=== PATIENT | female | born 1945 | race Caucasian/White ===

== ENCOUNTER 2023-12-12 19:04 | Emergency (ER) | payer MEDICARE, SELFPAY ==
--- NOTE | ~2023-12-12 | CT_ITS ---
EXAMINATION: CT HEAD WITHOUT CONTRAST, CT CERVICAL SPINE WITHOUT CONTRAST CLINICAL INFORMATION: Fall. Head strike COMPARISON: None. TECHNIQUE: Multidetector CT examination of the head is performed without contrast. Multidetector CT of the cervical spine without contrast. Multiplanar postprocessing This CT examination was performed using dose optimization techniques as appropriate, variously including the following: *Automated exposure control *Adjustment of mA and/or kV according to patient size (this includes techniques or standardized protocols for targeted exams where dose is matched to indication/reason for exam; i.e. extremities or head) *Use of iterative reconstruction technique DLP: 905 mGy-cm FINDINGS: Head CT: There is no evidence of a recent intracranial hemorrhage or extra-axial collection. The midline structures are nondisplaced. The ventricles, cisterns, and sulci are within normal limits. There is no evidence of an intra-axial mass. There are no suspicious focal areas of abnormal brain attenuation. The dozier-white interface is within normal limits. There is no evidence of acute territorial infarct. The paranasal sinuses and mastoids are within normal limits. No fracture demonstrated. Posterior high right convexity scalp hematoma. Cervical CT: Abnormal alignment. There is reversal of the expected lordosis centered at the C4/C5 level. There is minimal anterolisthesis of C3 relative to C4. There is partial ankylosis at C3/C4. There is marked narrowing of the disks from C3 through C7. There is proliferative osteophyte with sclerosis. This encroaches upon the spinal canal and the foramina. There is narrowing of the facets and there is foraminal narrowing. I suspect ankylosis of the facets at C3/C4. No definite acute fracture. No focal lesion. Mineralization of the ligaments around the odontoid. No suspicious abnormality in the visualized apex of the chest CT/CT cervical spine wo IV con IMPRESSION: 1. There is no evidence of a recent intracranial hemorrhage. 2. No acute infarct. 3. No acute cervical fracture. Reversal of expected lordosis with severe degenerative disc and degenerative joint disease. No old studies to confirm stability.
[2023-12-12 19:25] VITALS: BP 159/97; PULSE 103; RESP 17; O2SAT 99; BMI 23.4
[2023-12-12 20:07] VITALS: BP 129/90; PULSE 90; RESP 16; TEMP 37.2; O2SAT 97
--- NOTE | 2023-12-12 20:14 | PC.NURSE ---
Pt ambulates to the bathroom with a steady gait and no assist.
--- NOTE | 2023-12-12 21:05 | ED_ITS ---
HPI - General Adult General Chief complaint: Fall Stated complaint: fell and hit back of head Time Seen by Provider: 12/12/23 20:50 History of Present Illness ED Provider: Lyudmila Trejo PA-C HPI narrative: 78 yold female with pmh of GERD presents to the ED for head trauma. Patient states she was walking to garbage and she tripped on the stairs and fell back and hit her head. Patient denies any dizziness, nausea, vomiting, headache, chest pain, or abdominal pain before falling. Patient states it was a mechanical fall. Patient denies any loss of consciousness. Patient states no complaints since incident. Related Data Allergies Allergy/AdvReac Type Severity Reaction Status Date / Time No Known Allergies Allergy Verified 12/12/23 19:28 Review of Systems 2 Review of Systems: fall Yes all other systems are reviewed and are negative [facility] Social History Social History Smoked in Last 30 Days: No Use of substances other than those prescribed or required for medical reasons: No Advance Directives: No Advance Directives Information Provided: No Do you have a plan to hurt others: No Plan Physical Exam ED Vital Signs: Vital Signs - 24 hr 12/12/23 19:25 12/12/23 20:07 12/12/23 20:07 Temperature 99.0 F 99.0 F Pulse Rate 103 H 90 90 Respiratory Rate 17 16 16 Blood Pressure 159/97 H 129/90 H 129/90 H Pulse Oximetry 99 97 97 Oxygen Delivery Method Room Air Room Air 12/12/23 22:47 12/12/23 23:20 Temperature 98.4 F 98.4 F Pulse Rate 81 81 Respiratory Rate 16 16 Blood Pressure 127/85 127/85 Pulse Oximetry 97 97 Oxygen Delivery Method Room Air BMI result Body Mass Index 23.4 Const General: cooperative, healthy appearing, comfortable, no acute distress, well developed, alert, awake and Physically active Orientation/consciousness: patient oriented x3 HENMT Head: Yes normal to inspection, Yes No palpable skull fracture present and Yes normocephalic Head images: 2 1. positive for hematoma with mild tenderness. Negative for active bleeding. Negative for lacerations. Negative for crepitus Ears: hearing grossly normal bilaterally, external ears normal, TM's normal bilaterally, TM normal on the right, TM normal on the left, EAC's normal, mastoids normal and no periauricular adenopathy Throat: Yes posterior oropharynx normal, Yes tonsils normal and Yes uvula midline Eyes General: appearance normal, both eyes and all related structures Neck Neck: Yes normal visual inspection, Yes full ROM, Yes no lymphadenopathy, Yes no meningeal signs, Yes trachea midline, Yes supple, No anterior neck swelling and No tender Chest Chest palpation & inspection: normal inspection of the chest and normal palpation of entire chest wall Resp Effort & Inspection: normal respiratory effort and able to speak in complete sentences Auscultation: clear to auscultation bilaterally Cardio Jugular venous distension: no JVD Heart sounds: S1 normal heart sound present and S2 normal heart sound present GI Inspection: Yes normal to inspection Palpation (GI): Soft to palpation, not firm, nontender, no guarding and not rigid General: No CVA tenderness and Yes no CVA tenderness Back/Spine/Pelvis Back: no CVA tenderness, No CVA tenderness and No back tenderness Skin General skin exam: no rashes or lesions noted, elasticity normal and turgor normal Neuro General: patient oriented x3, gait normal, tone normal, moves all extremities, Normal light touch and pain sensation, no meningeal signs, no focal motor deficits, CN's II-XI intact bilaterally and normal sensation to monofilament Cranial nerves: Yes CN's II-XII intact bilaterally Extrem General: Yes normal to inspection, Yes full ROM and Yes capillary refill normal Psych Appearance: grossly normal, well kempt and not disheveled Medical Decision Making Medical Decision Making MDM Narrative: 78-year-old female the tripping on stairs in the garage close to the garbage. Patient denies any loss of consciousness. Patient denies any chest pain, shortness of breath, abdominal pain, dizziness, headache before falling. Patient is presently asymptomatic. Due to age head CT cervical spine ordered. 11:00pm; patient's images came back normal. No need for any further medical evaluation. Patient had mechanical fall with no need for labs or EKG. Patient is alert oriented x3. Patient denies any complaints. Patient explained worrisome sign informed to return to the ED immediately Differential Diagnosis Differential Diagnoses: The differential diagnosis associated with the presentation includes (Fracture, cervical spine fracture, brain bleed) Admission/Observation Consideration of admission/observation: Escalation of care including admission/observation considered Independent Interpretation I performed an independent interpretation of an: CT Scan Radiology Impression Discussion of test interpretation with radiology: I have reviewed the radiologist's reading. Independent Historian Clinical information obtained from an independent historian. History obtained from or confirmed by: Other ([facility]) External Record Review External record reviewed: Other (prior vistis) Discharge Plan Discharge Clinical Impression: Head injury, Fall Patient Disposition: Home, Self-Care Instructions: Head Injury (ED), Fall Prevention (ED) Additional Instructions: Images back normal. Return to the ED immediately for any nausea, chest pain, shortness of breath, abdominal pain, flank pain, blood in stool, blood in urine, back pain, dizziness, or any other concerning symptoms Interventions: ED Discharge Assessment Last Done: 12/12/23 23:20 Discharge Date/Time: 12/12/23 23:22 Print Language: Maltese
[2023-12-12 22:47] VITALS: BP 127/85; PULSE 81; RESP 16; TEMP 36.9; O2SAT 97
[2023-12-12 23:20] VITALS: BP 127/85; PULSE 81; RESP 16; TEMP 36.9; O2SAT 97
== END 2023-12-12 23:22 | disposition home or self-care (01) ==
PROVIDERS: Emergency Provider Emergency Medicine; PCP Nurse Practitioner Gerontology
DX: S09.90XA Unspecified injury of head, initial encounter (principal); R51.9 Headache, unspecified; M54.2 Cervicalgia; W01.10XA Fall on same level from slipping, tripping and stumbling with subsequent striking against unspecified object, initial encounter; Y93.89 Activity, other specified; Y92.89 Other specified places as the place of occurrence of the external cause; Y99.8 Other external cause status
CPT/HCPCS: 70450; 72125; 99283; 99284